=== PATIENT | male | born 1965 | race Two or more races ===

== ENCOUNTER 2019-09-23 15:52 | Inpatient (IN) | payer MEDICAID ==
[~2019-09-23] VITALS: Ht 185.4 cm; Wt 80.5 kg
[2019-09-23] MEDS ORDERED: LORAZEPAM 2MG/ML CPJ ONE (16:17)
[2019-09-23] MEDS ORDERED: NITROGLYCERIN 0.4MG TABLET SL SL ONE (16:45)
[2019-09-23 17:36] LABS: BASOPHILS % 0.8 % (0.0-2.0); EOSINOPHILS % 0.7 % (0.0-5.0); HEMATOCRIT. 45.5 % (42.0-52.0); HEMOGLOBIN. 15.4 g/dL (14.0-18.0); LYMPHOCYTES % 34.4 % (20.0-50.0); MEAN CORPUSCULAR HEMOGLOBIN 30.2 pg (28.0-32.0); MEAN CORPUSCULAR VOLUME 89.7 fL (80.0-94.0); MEAN PLATELET VOLUME 9.5 fl (7.4-10.4); NEUTROPHILS % 56.1 % (40.0-76.0); PLATELET 228 x1000/uL (130-400); RED BLOOD CELL COUNT 5.08 mill/uL (4.7-6.1); RED CELL DISTRIBUTION WIDTH 13.9 % (11.6-14.6)
[2019-09-23 17:39] LABS: CHLORIDE 105 mEq/L (98-107)
[2019-09-23 17:43] LABS: PROTHROMBIN TIME 10.8 sec (9.6-11.0)
[2019-09-23 17:48] LABS: CLARITY URINE CLEAR (CLEAR); COLOR URINE YELLOW (YELLOW); KETONES URINE NEGATIVE (NEGATIVE); LEUKOCYTE ESTERASE URINE NEGATIVE (NEGATIVE); NITRITE URINE NEGATIVE (NEGATIVE); OCCULT BLOOD URINE NEGATIVE (NEGATIVE); PH URINE 6.5 (4.5-8.0); PROTEIN URINE NEGATIVE (NEGATIVE); SPECIFIC GRAVITY URINE 1.014 (1.005-1.030); UROBILINOGEN URINE 0.2 E.U./dL (0.2-1.0)
[2019-09-23] MEDS ORDERED: ASPIRIN 81MG TABLET PO NR (18:15)
[2019-09-24] MEDS ORDERED: MAGNESIUM/ALUMINUM HYDROXIDE/SIMETHICONE 30ML UDC PO PRN (08:30)
[2019-09-24] MEDS ORDERED: HYDROCODONE/ACETAMINOPHEN 5/325MG TABLET PO PRN (08:30)
[2019-09-24] MEDS ORDERED: CLONIDINE 0.1MG TABLET PO PRN (08:30)
[2019-09-24] MEDS ORDERED: ACETAMINOPHEN 325MG TABLET PO PRN (08:30)
[2019-09-24] MEDS: ENOXAPARIN 40MG/0.4ML SYR SUBCUT SCH (10:39)
[2019-09-24 11:02] LABS: OPIATES URINE SCREEN NEGATIVE (NEGATIVE); PHENCYCLIDINE URINE SCREEN NEGATIVE (NEGATIVE)
[2019-09-24 11:03] LABS: *AMPHETAMINES SCREEN URINE NEGATIVE (NEGATIVE); *BARBITURATES SCREEN URINE NEGATIVE (NEGATIVE); *BENZODIAZEPINES SCREEN URINE NEGATIVE (NEGATIVE); *COCAINE SCREEN URINE NEGATIVE (NEGATIVE); CANNABINOID URINE SCREEN NEGATIVE (NEGATIVE); METHADONE URINE SCREEN NEGATIVE (NEGATIVE)
[2019-09-24 11:30] VITALS: BP 106/67
[2019-09-24 12:00] VITALS: BP 106/67
[2019-09-24 16:00] VITALS: BP 103/60
[2019-09-24 20:00] VITALS: BP 127/67
[2019-09-25] VITALS: BP 112/65
[2019-09-25 04:00] VITALS: BP 106/62
[2019-09-25 07:11] LABS: BASOPHILS % 1.1 % (0.0-2.0); EOSINOPHILS % 1.2 % (0.0-5.0); HEMATOCRIT. 45.4 % (42.0-52.0); HEMOGLOBIN. 15.3 g/dL (14.0-18.0); LYMPHOCYTES % 40.8 % (20.0-50.0); MEAN CORPUSCULAR HEMOGLOBIN 30.1 pg (28.0-32.0); MEAN CORPUSCULAR VOLUME 89.3 fL (80.0-94.0); MEAN PLATELET VOLUME 9.8 fl (7.4-10.4); MONOCYTES % 8.6 % (2.0-8.0); NEUTROPHILS % 48.3 % (40.0-76.0); PLATELET 217 x1000/uL (130-400); RED BLOOD CELL COUNT 5.08 mill/uL (4.7-6.1); RED CELL DISTRIBUTION WIDTH 13.6 % (11.6-14.6)
[2019-09-25 07:40] LABS: CHLORIDE 106 mEq/L (98-107)
[2019-09-25 07:55] LABS: PHOSPHORUS 4.1 mg/dL (2.5-4.9)
[2019-09-25 08:00] VITALS: BP 143/71
[2019-09-25] MEDS: ENOXAPARIN 40MG/0.4ML SYR SUBCUT SCH (08:21)
[2019-09-25 11:15] VITALS: BP 124/55
[2019-09-25 12:00] VITALS: BP 124/55
== END 2019-09-25 12:20 | disposition home or self-care (01) | DRG 203 ==
LOC: ER 15:52 → MICUSO 18:58 → EDBEDREQTM 19:02 → EDBEDREQ 19:02 → 5WST 09-24 10:52
PROVIDERS: ADMIT Internal Medicine; ATTEND Internal Medicine
DX: M94.0 Chondrocostal junction syndrome [Tietze] (principal)
CPT/HCPCS: 36415; 71045; 80048; 80053; 80305; 81003; 83735; 84100; 84443; 84484; 85025; 93005; 93306; 93970; 97162; 99285; J1650; J2060